=== PATIENT | male | born 1960 | race Hispanic/Latino ===

== ENCOUNTER 2020-12-12 13:41 | Inpatient (IN) | payer BC, SELFPAY ==
[2020-12-12 14:56] LABS: #Eosinphils 0.1 thou/uL (0.0-0.7); #Monocytes 1.3 thou/uL (0.11-0.59); #Neutrophils 9.5 thou/uL (1.40-6.50); %Eosinophils 0.7 % (0.0-10.0); %Lymphocytes 8.5 % (21.0-51.0); %Monocytes 10.6 % (0.0-10.0); %Neutrophils 80.1 % (42.0-75.0); Hemoglobin 13.1 g/dL (14.0-18.0); Mean Corpuscular HGB CONC 34.2 g/dL (32.0-36.0); Mean Corpuscular Hemoglobin 30.8 pg (27.0-31.0); Mean Corpuscular Volume 90.2 fL (78.0-98.0); Mean Platelet Volume 6.7 fL (7.4-10.4); Platelet Count 254 thou/uL (130-400); RBC Distribution Width 12.2 % (11.5-14.5); Red Blood Cell (RBC) Count 4.25 mill/uL (4.70-6.10); White Blood Cell (WBC) Count 11.8 thou/uL (4.8-10.8)
[2020-12-12 15:17] LABS: ALT (SGPT) 32 U/L (8-55); AST (SGOT) 26 U/L (5-34); Albumin 3.6 g/dL (3.4-4.8); Alkaline Phosphatase 69 U/L (40-110); Anion Gap 15 mmol/L (10-20); BUN (Urea Nitrogen) 11 mg/dL (8.4-25.7); Bilirubin, Total 0.5 mg/dL (0.2-1.2); Calc. Creatinine Clearance 0 mL/min (70-130); Calcium 9.1 mg/dL (7.8-10.44); Carbon Dioxide 24 mmol/L (23-31); Chloride 99 mmol/L (98-107); Globulin 4.7 g/dL (2.4-3.5); Glucose 184 mg/dL (80-115); Potassium 4.2 mmol/L (3.5-5.1); Protein, Total 8.3 g/dL (5.8-8.1); Sodium 134 mmol/L (136-145)
[2020-12-12 16:09] LABS: Bilirubin Negative (Negative); Blood, Urine 2+ (Negative); Clarity Turbid (Clear); Glucose, Urine (Dipstick) 200 mg/dL (Negative); Ketone, Urine Negative (Negative); Leukocyte 500 Leu/uL (Negative); Nitrite 2+ (Negative); Protein, Urine (Dipstick) 100 mg/dL (Neg-Trace); RBC/HPF 21-50 HPF (0-3); Squamous Epithelial None Seen HPF (0-3); WBC/HPF Greater than 50 HPF (0-3)
[2020-12-12 16:10] LABS: Bacteria/HPF 3+ HPF (None Seen)
[2020-12-12] MEDS ORDERED: cefTRIAXone\\ROCEPHIN 1 GM VIAL ONE (16:22)
[2020-12-12] MEDS ORDERED: Cefepime 2 GM VIAL ONE (16:24)
[2020-12-12] MEDS ORDERED: Dextrose 5% in Water 1,000 ML IV PRN (18:30)
[2020-12-12] MEDS ORDERED: Dextrose 50% Abboject 50 ML SYRINGE SLOW IVP PRN (18:30)
[2020-12-12 18:49] LABS: Lactic Acid 2.4 mmol/L (0.5-2.2)
[2020-12-12] MEDS ORDERED: Sodium Chloride 0.9% 1,000 ML IV SCH (19:30)
[2020-12-12 19:41] VITALS: BMI 36.1
[2020-12-12] MEDS: Lantus 1000 UNITS/10 ML VIAL SC SCH (20:37)
[2020-12-13] MEDS: CEFEPIME HCL IN DEXTROSE 5 % 1 GM in Premix Bag 1 BAG IVPB SCH ×2 (03:40→16:35)
[2020-12-13] MEDS: Acetaminophen 325 MG TAB PO PRN ×2 (06:00→20:56)
[2020-12-13 07:13] LABS: Lactic Acid 0.8 mmol/L (0.5-2.2)
[2020-12-13 08:27] LABS: SARS-CoV-2 NAA Rapid Test Not Detected (NotDetected)
[2020-12-13] MEDS ORDERED: Albuterol Sulfate 2.5 mg/3 ml Neb NEB PRN (10:01)
[2020-12-13] MEDS: Vancomycin 1.5 GRAM/300 ML BAG 1.5 GM in Premix Bag 1 BAG IVPB SCH ×2 (11:54→23:30)
[2020-12-13] MEDS: HumaLOG 300 UNITS/3 ML VIAL SC PRN ×2 (12:05→16:42)
[2020-12-13] MEDS: metFORMIN 500 MG TAB PO SCH (18:02)
[2020-12-13] MEDS: Atorvastatin Calcium 20 MG TAB PO SCH (20:56)
[2020-12-13] MEDS: Tamsulosin HCl 0.4 MG CAP PO SCH (20:57)
[2020-12-13] MEDS: Lantus 1000 UNITS/10 ML VIAL SC SCH (20:57)
[2020-12-14] MEDS: CEFEPIME HCL IN DEXTROSE 5 % 1 GM in Premix Bag 1 BAG IVPB SCH (03:44)
[2020-12-14 06:35] LABS: Hemoglobin 11.5 g/dL (14.0-18.0); Mean Corpuscular HGB CONC 33.7 g/dL (32.0-36.0); Mean Corpuscular Hemoglobin 30.5 pg (27.0-31.0); Mean Corpuscular Volume 90.5 fL (78.0-98.0); Mean Platelet Volume 6.7 fL (7.4-10.4); Platelet Count 243 thou/uL (130-400); RBC Distribution Width 12.1 % (11.5-14.5); Red Blood Cell (RBC) Count 3.77 mill/uL (4.70-6.10); White Blood Cell (WBC) Count 11.1 thou/uL (4.8-10.8)
[2020-12-14 06:43] LABS: ALT (SGPT) 33 U/L (8-55); AST (SGOT) 22 U/L (5-34); Alkaline Phosphatase 65 U/L (40-110); Anion Gap 16 mmol/L (10-20); BUN (Urea Nitrogen) 10 mg/dL (8.4-25.7); Bilirubin, Total 0.4 mg/dL (0.2-1.2); Calc. Creatinine Clearance 150 mL/min (70-130); Calcium 8.6 mg/dL (7.8-10.44); Carbon Dioxide 21 mmol/L (23-31); Chloride 105 mmol/L (98-107); Globulin 3.9 g/dL (2.4-3.5); Glucose 122 mg/dL (80-115); Potassium 3.6 mmol/L (3.5-5.1); Protein, Total 6.9 g/dL (5.8-8.1); Sodium 138 mmol/L (136-145)
[2020-12-14 06:53] LABS: Lymphocytes 10 % (21-51); MDiff Complete? YES; Monocytes 6 % (0-10); Neutrophil 83 % (42-75); Platelet Morphology Comment Appears Adequate
[2020-12-14] MEDS: Glimepiride 4 MG TAB PO SCH (08:14)
[2020-12-14] MEDS: Aspirin 81 mg Enteric Coated Tablet PO SCH (08:15)
[2020-12-14] MEDS: Tamsulosin HCl 0.4 MG CAP PO SCH ×2 (08:15→20:21)
[2020-12-14] MEDS: metFORMIN 500 MG TAB PO SCH ×2 (08:15→17:48)
[2020-12-14] MEDS: Losartan 25 MG TAB PO SCH (08:15)
[2020-12-14] MEDS: Pioglitazone HCl 15 MG TAB PO SCH (08:16)
[2020-12-14] MEDS: Vancomycin 1.5 GRAM/300 ML BAG 1.5 GM in Premix Bag 1 BAG IVPB SCH (10:52)
[2020-12-14] MEDS: HumaLOG 300 UNITS/3 ML VIAL SC PRN (11:28)
[2020-12-14] MEDS: Lantus 1000 UNITS/10 ML VIAL SC SCH (20:21)
[2020-12-14] MEDS: Atorvastatin Calcium 20 MG TAB PO SCH (20:21)
[2020-12-14] MEDS: Ciprofloxacin 500 MG TAB PO SCH (20:21)
[2020-12-15] MEDS: Ciprofloxacin 500 MG TAB PO SCH (06:29)
[2020-12-15] MEDS: Losartan 25 MG TAB PO SCH (09:13)
[2020-12-15] MEDS: Tamsulosin HCl 0.4 MG CAP PO SCH (09:13)
[2020-12-15] MEDS: metFORMIN 500 MG TAB PO SCH (09:13)
[2020-12-15] MEDS: Aspirin 81 mg Enteric Coated Tablet PO SCH (09:13)
[2020-12-15] MEDS: Glimepiride 4 MG TAB PO SCH (09:14)
[2020-12-15] MEDS: Pioglitazone HCl 15 MG TAB PO SCH (09:14)
[2020-12-15 12:59] VITALS: BP 137/83; TEMP 97.5
[2020-12-16] MEDS ORDERED: Aspirin 81 mg Enteric Coated Tablet PO SCH (09:00)
== END 2020-12-15 12:56 | disposition home or self-care (01) | DRG 698 ==
LOC: ERS 13:41 → T4-B 17:16 → OBSVTOIN 12-13 10:14
PROVIDERS: ADMIT Internal Medicine; ATTEND Internal Medicine
PROC: 0T2BX0Z Change Drainage Device in Bladder, External Approach (ICD-10-PCS; principal; 2020-12-12)
DX: T83.518A Infection and inflammatory reaction due to other urinary catheter, initial encounter (principal); A41.50 Gram-negative sepsis, unspecified; N39.0 Urinary tract infection, site not specified; N17.9 Acute kidney failure, unspecified; Z20.822 Contact with and (suspected) exposure to COVID-19; D64.9 Anemia, unspecified; E66.9 Obesity, unspecified; I10 Essential (primary) hypertension; E11.9 Type 2 diabetes mellitus without complications; N40.0 Benign prostatic hyperplasia without lower urinary tract symptoms; Y84.6 Urinary catheterization as the cause of abnormal reaction of the patient, or of later complication, without mention of misadventure at the time of the procedure; Z68.36 Body mass index [BMI] 36.0-36.9, adult
CPT/HCPCS: 36415; 36416; 71045; 80053; 81003; 81015; 83605; 85025; 87040; 87077; 87086; 87186; 96376; G0378; J0692; J0696; J1815; J3370; U0002; U0003; U0005

== ENCOUNTER 2021-02-02 09:30 | Inpatient (IN) | payer BC ==
[2021-02-02 11:11] LABS: Hemoglobin 13.6 g/dL (13.5-17.5); Mean Corpuscular HGB CONC 32.8 g/dL (32.0-36.0); Mean Corpuscular Hemoglobin 28.8 pg (27.0-33.0); Mean Corpuscular Volume 87.9 fl (81.2-95.1); Mean Platelet Volume 9.3 fl (7.4-10.4); Platelet Count 200 10x3/uL (150-450); RBC Distribution Width 13.1 % (11.5-14.5); Red Blood Cell (RBC) Count 4.72 10x6/uL (4.32-5.72); White Blood Cell (WBC) Count 6.8 10x3/uL (3.5-10.5)
[2021-02-02 11:29] LABS: ALT (SGPT) 19 U/L (8-55); AST (SGOT) 14 U/L (5-34); Alkaline Phosphatase 52 U/L (40-110); Anion Gap 13 mmol/L (10-20); BUN (Urea Nitrogen) 15 mg/dL (8.4-25.7); Bilirubin, Total 0.4 mg/dL (0.2-1.2); Calc. Creatinine Clearance 0 mL/min (70-130); Calcium 9.7 mg/dL (7.8-10.44); Carbon Dioxide 27 mmol/L (23-31); Chloride 106 mmol/L (98-107); Globulin 3.5 g/dL (2.4-3.5); Glucose 92 mg/dL (80-115); Potassium 4.4 mmol/L (3.5-5.1); Protein, Total 7.5 g/dL (5.8-8.1); Sodium 142 mmol/L (136-145)
[2021-02-02 11:30] LABS: INR-International Normal Ratio 0.9; PTT 26.4 sec (22.0-33.0); Prothrombin Time 10.3 sec (9.5-12.1)
[2021-02-03 00:31] LABS: SARS-CoV-2 PCR by NAA Not Detected (NotDetected)
[2021-02-05] MEDS ORDERED: Iothalamate Meglumine 60% 50 ML VIAL FS ONE (06:33)
[2021-02-05] MEDS ORDERED: Lidocaine 1% w/Epinephrine 1:100K 20 ML VIAL ONE (06:33)
[2021-02-05] MEDS ORDERED: Fentanyl 100 MCG/2 ML VIAL ONE (06:43)
[2021-02-05] MEDS ORDERED: ceFOXitin 1 GM VIAL ONE ×2 (07:13→10:33)
[2021-02-05] MEDS ORDERED: Sodium Chloride 0.9% 100 ML ONE (07:13)
[2021-02-05] MEDS ORDERED: B & O ONE (07:14)
[2021-02-05] MEDS ORDERED: Midazolam HCl 2 mg/2 ml Vial ONE (07:18)
[2021-02-05] MEDS ORDERED: Ketamine 50 MG/ML (10ML VIAL) ONE (07:18)
[2021-02-05] MEDS ORDERED: Rocuronium Bromide 10 MG/ML (10ML VIAL) ONE (07:45)
[2021-02-05] MEDS ORDERED: Ondansetron PF 4 MG/2 ML Vial ONE (07:45)
[2021-02-05] MEDS ORDERED: Glycopyrrolate 0.2 MG/ML 5 ML SYRINGE ONE (07:45)
[2021-02-05] MEDS ORDERED: Dexamethasone 20 MG/5 ML VIAL ONE (07:45)
[2021-02-05] MEDS ORDERED: PROPOFOL 200 MG/20 ML VIAL ONE (07:45)
[2021-02-05] MEDS ORDERED: PHENYLEPHRINE-NS 100 MCG/ML 10 ML SYRINGE ONE (07:45)
[2021-02-05] MEDS ORDERED: Lidocaine 1% PF 5 ML VIAL ONE (07:45)
[2021-02-05] MEDS ORDERED: ePHEDrine 50 MG/ML VIAL ONE (07:45)
[2021-02-05] MEDS ORDERED: Phenylephrine 10 MG/ML VIAL ONE (09:27)
[2021-02-05] MEDS ORDERED: Rocuronium Bromide 50 MG/5 ML VIAL ONE (09:27)
[2021-02-05] MEDS ORDERED: Promethazine HCl 25 MG/ML VIAL IVPB PRN (11:27)
[2021-02-05] MEDS ORDERED: Ondansetron HCl/PF 4 MG/2 ML Vial IVP PRN (11:27)
[2021-02-05] MEDS ORDERED: Meperidine HCl/PF 25 MG/ML VIAL SLOW IVP PRN (11:27)
[2021-02-05] MEDS ORDERED: Promethazine HCl 25 MG/ML VIAL IM PRN (11:27)
[2021-02-05] MEDS ORDERED: Insulin Regular 300 UNITS/3 ML VIAL ONE (11:46)
[2021-02-05 11:48] LABS: Hemoglobin 10.5 g/dL (14.0-18.0); Platelet Count 190 thou/uL (130-400)
[2021-02-05] MEDS ORDERED: Morphine 2 MG/ML VIAL SLOW IVP PRN (13:27)
[2021-02-05] MEDS ORDERED: Hyoscyamine Sulfate SL 0.125 mg Tablet SL PRN (13:27)
[2021-02-05] MEDS ORDERED: Morphine 4 MG/ML VIAL SLOW IVP PRN (13:27)
[2021-02-05] MEDS ORDERED: Oxybutynin 5 MG TAB PO PRN (13:27)
[2021-02-05] MEDS ORDERED: Mag-Al 1200 mg/1200 mg/30 ML UDCUP PO PRN (13:27)
[2021-02-05] MEDS ORDERED: Dextrose 50% Abboject 50 ML SYRINGE SLOW IVP PRN (13:27)
[2021-02-05] MEDS ORDERED: Acetaminophen 500 MG TAB PO PRN (13:27)
[2021-02-05] MEDS ORDERED: HYDROcodone/Acetaminophen 5/325 mg Tablet PO PRN ×2 (13:27)
[2021-02-05] MEDS ORDERED: diphenhydrAMINE 25 MG CAP PO PRN (13:27)
[2021-02-05] MEDS ORDERED: Dextrose 5% in Water 1,000 ML IV PRN (13:27)
[2021-02-05] MEDS ORDERED: Ondansetron PF 4 MG/2 ML Vial IVP PRN (13:27)
[2021-02-05] MEDS ORDERED: hydrALAZINE 20 MG/ML VIAL SLOW IVP PRN (13:27)
[2021-02-05 14:22] LABS: Hemoglobin 11.5 g/dL (14.0-18.0)
[2021-02-05 16:36] VITALS: BMI 39.1
[2021-02-05] MEDS: Sodium Chloride 0.9% 1,000 ML IV SCH (17:14)
[2021-02-05] MEDS: metFORMIN 500 MG TAB PO SCH (18:10)
[2021-02-05] MEDS: HumaLOG 300 UNITS/3 ML VIAL SC PRN (18:10)
[2021-02-05] MEDS: Docusate 100 MG CAP PO SCH (21:04)
[2021-02-05] MEDS: cefOXitin 1.5 GM in Sodium Chloride 0.9% 100 ML IVPB SCH (21:04)
[2021-02-05] MEDS: Ciprofloxacin 500 MG TAB PO SCH (21:04)
[2021-02-05] MEDS: NPH, Human Insulin Isophane 300 UNIT/3 ML VIAL SC SCH (21:51)
[2021-02-06] MEDS: cefOXitin 1.5 GM in Sodium Chloride 0.9% 100 ML IVPB SCH ×2 (03:15→11:49)
[2021-02-06] MEDS: Sodium Chloride 0.9% 1,000 ML IV SCH (04:49)
[2021-02-06 05:37] LABS: #Monocytes 1.2 thou/uL (0.11-0.59); #Neutrophils 10.9 thou/uL (1.40-6.50); %Eosinophils 0.1 % (0.0-10.0); %Lymphocytes 7.6 % (21.0-51.0); %Monocytes 9.1 % (0.0-10.0); %Neutrophils 83.3 % (42.0-75.0); Hemoglobin 11.8 g/dL (14.0-18.0); Mean Corpuscular Hemoglobin 30.6 pg (27.0-31.0); Mean Corpuscular Volume 89.9 fL (78.0-98.0); Platelet Count 192 thou/uL (130-400); Red Blood Cell (RBC) Count 3.85 mill/uL (4.70-6.10)
[2021-02-06] MEDS: Ciprofloxacin 500 MG TAB PO SCH ×2 (05:47→20:44)
[2021-02-06 05:58] LABS: Anion Gap 13 mmol/L (10-20); BUN (Urea Nitrogen) 22 mg/dL (8.4-25.7); Calc. Creatinine Clearance 88 mL/min (70-130); Calcium 8.4 mg/dL (7.8-10.44); Carbon Dioxide 22 mmol/L (23-31); Chloride 107 mmol/L (98-107); Glucose 173 mg/dL (80-115); Potassium 4.4 mmol/L (3.5-5.1); Sodium 138 mmol/L (136-145)
[2021-02-06] MEDS: metFORMIN 500 MG TAB PO SCH ×2 (08:55→16:55)
[2021-02-06] MEDS: Glimepiride 4 MG TAB PO SCH (08:55)
[2021-02-06] MEDS: Docusate 100 MG CAP PO SCH ×2 (08:55→20:44)
[2021-02-06] MEDS: Pioglitazone HCl 15 MG TAB PO SCH (08:56)
[2021-02-06] MEDS: NPH, Human Insulin Isophane 300 UNIT/3 ML VIAL SC SCH (20:44)
[2021-02-06] MEDS: Atorvastatin Calcium 20 MG TAB PO SCH (20:44)
[2021-02-07 05:38] LABS: #Eosinphils 0.2 thou/uL (0.0-0.7); #Lymphocytes 1.5 thou/uL (1.20-3.40); #Monocytes 0.8 thou/uL (0.11-0.59); #Neutrophils 7.1 thou/uL (1.40-6.50); %Basophils 0.2 % (0.0-1.0); %Eosinophils 2.1 % (0.0-10.0); %Lymphocytes 15.5 % (21.0-51.0); %Monocytes 8.7 % (0.0-10.0); %Neutrophils 73.4 % (42.0-75.0); Hemoglobin 9.9 g/dL (14.0-18.0); Mean Corpuscular HGB CONC 33.5 g/dL (32.0-36.0); Mean Corpuscular Hemoglobin 30.1 pg (27.0-31.0); Mean Corpuscular Volume 89.8 fL (78.0-98.0); Mean Platelet Volume 7.1 fL (7.4-10.4); Platelet Count 190 thou/uL (130-400); Red Blood Cell (RBC) Count 3.29 mill/uL (4.70-6.10); White Blood Cell (WBC) Count 9.6 thou/uL (4.8-10.8)
[2021-02-07 06:08] LABS: Anion Gap 11 mmol/L (10-20); BUN (Urea Nitrogen) 18 mg/dL (8.4-25.7); Calc. Creatinine Clearance 117 mL/min (70-130); Calcium 8.4 mg/dL (7.8-10.44); Carbon Dioxide 25 mmol/L (23-31); Chloride 105 mmol/L (98-107); Glucose 112 mg/dL (80-115); Potassium 3.9 mmol/L (3.5-5.1); Sodium 137 mmol/L (136-145)
[2021-02-07] MEDS: Ciprofloxacin 500 MG TAB PO SCH ×2 (06:12→20:55)
[2021-02-07] MEDS: metFORMIN 500 MG TAB PO SCH ×2 (08:51→18:00)
[2021-02-07] MEDS: Docusate 100 MG CAP PO SCH ×2 (08:52→20:55)
[2021-02-07] MEDS: Glimepiride 4 MG TAB PO SCH (08:52)
[2021-02-07] MEDS: Pioglitazone HCl 15 MG TAB PO SCH (08:52)
[2021-02-07] MEDS: Atorvastatin Calcium 20 MG TAB PO SCH (20:55)
[2021-02-07] MEDS: NPH, Human Insulin Isophane 300 UNIT/3 ML VIAL SC SCH (20:59)
[2021-02-08] MEDS: Ciprofloxacin 500 MG TAB PO SCH ×2 (05:30→19:53)
[2021-02-08 06:04] LABS: #Eosinphils 0.4 thou/uL (0.0-0.7); #Lymphocytes 1.5 thou/uL (1.20-3.40); #Monocytes 0.7 thou/uL (0.11-0.59); #Neutrophils 4.7 thou/uL (1.40-6.50); %Basophils 0.3 % (0.0-1.0); %Lymphocytes 20.4 % (21.0-51.0); %Monocytes 9.5 % (0.0-10.0); %Neutrophils 63.8 % (42.0-75.0); Hemoglobin 9.7 g/dL (14.0-18.0); Mean Corpuscular HGB CONC 33.7 g/dL (32.0-36.0); Mean Corpuscular Hemoglobin 30.4 pg (27.0-31.0); Mean Corpuscular Volume 90.2 fL (78.0-98.0); Mean Platelet Volume 6.8 fL (7.4-10.4); Platelet Count 217 thou/uL (130-400); RBC Distribution Width 12.9 % (11.5-14.5); Red Blood Cell (RBC) Count 3.17 mill/uL (4.70-6.10); White Blood Cell (WBC) Count 7.4 thou/uL (4.8-10.8)
[2021-02-08 06:32] LABS: Anion Gap 10 mmol/L (10-20); BUN (Urea Nitrogen) 15 mg/dL (8.4-25.7); Calc. Creatinine Clearance 121 mL/min (70-130); Calcium 8.6 mg/dL (7.8-10.44); Carbon Dioxide 26 mmol/L (23-31); Chloride 107 mmol/L (98-107); Glucose 70 mg/dL (80-115); Potassium 3.6 mmol/L (3.5-5.1); Sodium 139 mmol/L (136-145)
[2021-02-08] MEDS: metFORMIN 500 MG TAB PO SCH ×2 (08:57→17:10)
[2021-02-08] MEDS: Pioglitazone HCl 15 MG TAB PO SCH (08:58)
[2021-02-08] MEDS: Glimepiride 4 MG TAB PO SCH (08:58)
[2021-02-08] MEDS: Docusate 100 MG CAP PO SCH ×2 (08:58→19:54)
[2021-02-08] MEDS: HumaLOG 300 UNITS/3 ML VIAL SC PRN (12:30)
[2021-02-08] MEDS: Atorvastatin Calcium 20 MG TAB PO SCH (19:53)
[2021-02-08] MEDS: NPH, Human Insulin Isophane 300 UNIT/3 ML VIAL SC SCH (20:00)
[2021-02-09 05:51] LABS: #Basophils 0.1 thou/uL (0.0-0.2); #Eosinphils 0.5 thou/uL (0.0-0.7); #Lymphocytes 1.9 thou/uL (1.20-3.40); #Monocytes 0.7 thou/uL (0.11-0.59); %Eosinophils 6.8 % (0.0-10.0); %Lymphocytes 26.1 % (21.0-51.0); %Monocytes 9.8 % (0.0-10.0); %Neutrophils 56.4 % (42.0-75.0); Hemoglobin 9.9 g/dL (14.0-18.0); Mean Corpuscular HGB CONC 33.3 g/dL (32.0-36.0); Mean Corpuscular Hemoglobin 30.2 pg (27.0-31.0); Mean Corpuscular Volume 90.8 fL (78.0-98.0); Mean Platelet Volume 6.6 fL (7.4-10.4); Platelet Count 254 thou/uL (130-400); RBC Distribution Width 12.8 % (11.5-14.5); Red Blood Cell (RBC) Count 3.28 mill/uL (4.70-6.10); White Blood Cell (WBC) Count 7.1 thou/uL (4.8-10.8)
[2021-02-09 06:16] LABS: Anion Gap 12 mmol/L (10-20); BUN (Urea Nitrogen) 17 mg/dL (8.4-25.7); Calc. Creatinine Clearance 130 mL/min (70-130); Calcium 8.6 mg/dL (7.8-10.44); Carbon Dioxide 25 mmol/L (23-31); Chloride 106 mmol/L (98-107); Glucose 78 mg/dL (80-115); Potassium 3.6 mmol/L (3.5-5.1); Sodium 139 mmol/L (136-145)
[2021-02-09] MEDS: metFORMIN 500 MG TAB PO SCH ×2 (08:36→17:29)
[2021-02-09] MEDS: Pioglitazone HCl 15 MG TAB PO SCH (08:36)
[2021-02-09] MEDS: Glimepiride 4 MG TAB PO SCH (08:36)
[2021-02-09] MEDS: Docusate 100 MG CAP PO SCH ×2 (08:36→21:36)
[2021-02-09] MEDS: NPH, Human Insulin Isophane 300 UNIT/3 ML VIAL SC SCH (21:36)
[2021-02-09] MEDS: Atorvastatin Calcium 20 MG TAB PO SCH (21:37)
[2021-02-10] MEDS: Glimepiride 4 MG TAB PO SCH (09:04)
[2021-02-10] MEDS: metFORMIN 500 MG TAB PO SCH ×2 (09:04→17:55)
[2021-02-10] MEDS: Docusate 100 MG CAP PO SCH (09:04)
[2021-02-10] MEDS: Pioglitazone HCl 15 MG TAB PO SCH (09:04)
[2021-02-10 16:18] VITALS: BP 154/83; TEMP 98.3
== END 2021-02-10 17:48 | disposition home or self-care (01) | DRG 707 ==
LOC: SURG A 02-05 06:13 → EDSTATUS 02-05 09:30 → SURG A 02-05 15:41
PROVIDERS: ADMIT Urology; ATTEND Urology
PROC: 0VT00ZZ Resection of Prostate, Open Approach (ICD-10-PCS; principal; 2021-02-05)
PROC: 0T9B7ZZ Drainage of Bladder, Via Natural or Artificial Opening (ICD-10-PCS; 2021-02-05)
PROC: 30233N1 Transfusion of Nonautologous Red Blood Cells into Peripheral Vein, Percutaneous Approach (ICD-10-PCS; 2021-02-05)
DX: N40.1 Benign prostatic hyperplasia with lower urinary tract symptoms (principal); N17.9 Acute kidney failure, unspecified; N13.8 Other obstructive and reflux uropathy; N13.39 Other hydronephrosis; Z20.822 Contact with and (suspected) exposure to COVID-19; R33.8 Other retention of urine; E66.9 Obesity, unspecified; E86.1 Hypovolemia; E78.5 Hyperlipidemia, unspecified; I10 Essential (primary) hypertension; E11.9 Type 2 diabetes mellitus without complications; Z68.39 Body mass index [BMI] 39.0-39.9, adult; Z87.891 Personal history of nicotine dependence; Z79.899 Other long term (current) drug therapy; Z79.4 Long term (current) use of insulin
CPT/HCPCS: 36415; 36416; 36430; 71046; 80048; 80053; 85014; 85018; 85025; 85027; 85610; 85730; 86850; 86900; 86901; 87077; 87086; 87186; 88309; 93005; C2617; J0694; J1100; J1815; J2250; J2370; J2405; J2704; J3010; J3490; P9016; Q9961; U0003; U0005

== ENCOUNTER 2021-02-02 09:36 | Outpatient (CLI) | payer BC | END 2021-02-02 09:37 | disposition home or self-care (01) | LOC: LABBT 09:36 | PROVIDERS: ATTEND Urology | DX: Z01.818 Encounter for other preprocedural examination (principal); N40.1 Benign prostatic hyperplasia with lower urinary tract symptoms; R33.8 Other retention of urine; N13.39 Other hydronephrosis; Z20.822 Contact with and (suspected) exposure to COVID-19 | CPT/HCPCS: 71046; 80053; 85027; 85610; 85730; 86850; 86900; 86901; 87077; 87086; 87186; 93005; 93010; U0003; U0005 ==

== ENCOUNTER 2021-02-24 08:30 | Outpatient (CLI) | payer BC ==
[2021-02-24] MEDS ORDERED: Iopamidol-370 76% 500 ML 1 ML ONE (09:16)
== END 2021-02-24 08:31 | disposition home or self-care (01) ==
LOC: RAD 08:30
PROVIDERS: ATTEND Urology
DX: Z43.5 Encounter for attention to cystostomy (principal); N13.70 Vesicoureteral-reflux, unspecified; Z90.79 Acquired absence of other genital organ(s)
CPT/HCPCS: 51600; 74455; Q9967